=== PATIENT | female | born 1995 | race Caucasian/White ===

== ENCOUNTER 2017-01-25 19:03 | Emergency (ER) | payer OTHER ==
--- NOTE | ~2017-01-25 | US134 ---
[facility] A Service of [facility] & [facility] RADIOLOGY TEXT RESULTS PATIENT: CLARY NG LOCATION: [facility] : [birth year] UNIT #: [id number] AGE: [address]: Harleen Reyes MD SEX: F ORDER DR: [id number] [facility] [address] [place], [place] [address] [id number] E MR#: [id number] Acc #: [id number] NAME: CLARY NG : 1995 SEX: F STUDY DATE/TIME: 01/26/2017 01:05 UNIT: [facility] ROOM: STUDY DESCRIPTION: US Transvaginal Attending Physician: Harleen Reyes M.D. Ordering Physician: Harleen Reyes M.D. Primary Care Physician: Duncan Adams D.O. MEDICAL IMAGING REPORT This report is preliminary unless electronic signature is present EXAM Pelvic ultrasound, 01/26 at 0105 hours. INDICATIONS Pelvic pain since yesterday. FINDINGS Transvaginal imaging is performed of the pelvis in multiple planes. No comparison. Uterus measures about 7.6 x 3.4 x 6.1 cm. Myometrium is normal. The endometrial stripe is thin. There is a dominant right ovarian cyst measuring 2.1 x 2.3 x 2.5 cm. The ovaries are otherwise normal and demonstrate perfusion by Doppler. Small amount of free fluid is noted in the cul-de-sac, probably physiologic. IMPRESSION 2.5 cm right ovarian cyst. The ovaries are otherwise normal and show perfusion by Doppler. Uterus and endometrial stripe are normal. Trace free fluid in the cul-de-sac is likely a physiologic finding in a female of this age. Dictated by... Jason Pretty Jr., M.D. THIS IS AN ELECTRONICALLY VERIFIED REPORT Jason Pretty Jr., M.D. at 01/27/2017 3:16 AM JELLY/angela TD: 01/26/2017 06:13 JOB #: [id number] MEDICAL IMAGING REPORT Page 1 of 1 COPY
[2017-01-25 21:07] LABS: BASOPHIL% 0.6 % (0-2.5); EOSINOPHIL# 0.2 X10e3 (0-0.7); HEMATOCRIT 28.5 % (35.0-45.0); HEMOGLOBIN 9.1 gm/dL (12.0-16.0); LYMPHOCYTE# 1.9 X10e3 (1.0-3.5); LYMPHOCYTE% 26.2 % (17.0-45.0); MEAN CORPUSCULAR HEMOGLOBIN 27.5 PG (28-34); MEAN PLATELET VOLUME 7.1 FL (6.5-11.5); MONOCYTE# 0.5 X10e3 (0-1.0); MONOCYTE% 6.1 % (3.0-12.0); NEUTROPHIL# 4.7 X10e3 (1.5-7.1); NEUTROPHIL% 64.1 % (40-75); PLATELET COUNT 293 X10e3 (140-420); RED BLOOD COUNT 3.31 X10e (3.90-5.30); RED CELL DISTRIBUTION WIDTH 14.5 % (11.0-15.5); WHITE BLOOD COUNT 7.4 X10e3 (4.0-10.5)
[2017-01-25 21:10] LABS: DIFF IND NO
[2017-01-25 21:33] LABS: ALBUMIN SERUM 3.6 g/dL (3.5-5.0); BILIRUBIN,TOTAL 0.5 mg/dL (0.2-2.0); CALCIUM SERUM 8.5 mg/dL (8.4-10.2); GLOM FILT RATE Estimated 81.1 mL/min (>60); POTASSIUM 4.2 mmol/L (3.5-5.1); PROTEIN TOTAL SERUM 7.9 g/dL (6.0-8.3)
[2017-01-25 21:34] LABS: BILIRUBIN, DIRECT 0.1 mg/dL (0.0-0.2); BILIRUBIN,INDIRECT 0.4 mg/dL (0.0-0.9)
[2017-01-26 01:04] LABS: URINE APPEARANCE CLEAR; URINE BILIRUBIN NEG (NEG); URINE BLOOD NEG (NEG); URINE COLOR YELLOW; URINE GLUCOSE NEG (NEG); URINE KETONE NEG (NEG); URINE LEUKOCYTE ESTERASE NEG (NEG); URINE NITRATE NEG (NEG); URINE PH 6.5 (5-8); URINE PROTEIN NEG (NEG); URINE SOURCE CLEAN CATCH; URINE SPECIFIC GRAVITY 1.008 (1.003-1.035); URINE UROBILINOGEN 0.2 MG/DL (NEG)
[2017-01-26 01:09] LABS: CULTURE INDICATED? NO
[2017-01-29 19:12] LABS: CHLAMYDIA TRACH Not Detected (Not Detected); N GONOR Not Detected (Not Detected)
== END 2017-01-26 03:00 | disposition home or self-care (01) ==
LOC: CED 19:03
PROVIDERS: Emergency Medicine
DX: N83.201 Unspecified ovarian cyst, right side (principal)
CPT/HCPCS: 36415; 76830; 80048; 80076; 81003; 82150; 83690; 84703; 85025; 87491; 87591; 87808; 87905; 96372; 99284; J1885